=== PATIENT | female | born 1960 | race Caucasian/White ===

== ENCOUNTER 2018-12-14 13:06 | Emergency (ER) | payer BC ==
[2018-12-14] MEDS ORDERED: ACETAMINOPHEN 325 MG TAB PO (15:30)
[2018-12-14] MEDS: ONDANSETRON (ODT) 4 MG TAB ODT (15:32)
[2018-12-14] MEDS: HYDROCODONE/APAP (5/325) TAB PO (15:32)
[2018-12-14] MEDS: IBUPROFEN 600 MG TAB PO (15:41)
== END 2018-12-14 16:00 | disposition home or self-care (01) ==
LOC: FTE 13:06
DX: S20.212A Contusion of left front wall of thorax, initial encounter (principal); W11.XXXA Fall on and from ladder, initial encounter; Y92.9 Unspecified place or not applicable
CPT/HCPCS: 71100; 99283-25